=== PATIENT | female | born 1960 | race American Indian/Alaskan Native ===

== ENCOUNTER 2017-03-19 06:22 | Day surgery (SDC) | payer MEDICARE, OTHER ==
[~2017-03-19 06:22] MED LIST: Midazolam 1 MG/ML 2 ML SDV ONE; fentaNYL 100 MCG/2 ML SDV ONE
[2017-03-19] MEDS ORDERED: Dextrose 5%-0.45% NaCl 1,000 ML IV SCH (07:00)
[2017-03-19] MEDS ORDERED: fentaNYL 100 MCG/2 ML SDV IV ONE ×3 (07:11→14:50)
[2017-03-19] MEDS ORDERED: Midazolam 1 MG/ML 2 ML SDV IV ONE ×3 (07:12→14:50)
[2017-03-19 09:41] VITALS: BP 102/56
--- NOTE | 2017-03-19 12:34 | OR ---
DATE: 03/19/2017 PROCEDURE: Esophagogastroduodenoscopy and multiple pinch biopsies. INSTRUMENT USED: GIF-H180 Olympus video panendoscope. PREMEDICATIONS: No oral topical anesthesia used. Fentanyl 100 mcg intravenous, Versed 2 mg intravenous. The procedure was done under pulse oximetry, BP recording, and quality assurance monitor body. INDICATION: The patient with persistent abdominal pain and recent progressive weight loss, unexplained, history of passing dark stools intermittently. Esophagogastroduodenoscopy is performed for detection of any active erosive lesions, Gu[place]upe esophagus and/or malignancy also under consideration, H. pylori status to be determined, endoscopic hemostasis therapy if needed. DESCRIPTION OF PROCEDURE: The scope was passed with ease. Adequate visualization of the esophagus was made from proximal to distal areas. No upper esophageal lesions identified. No distal esophageal stricture. No uphill or downhill esophageal varices. No Carolyn-Guaman tear. No evidence of erosive esophagitis by Nance criteria. No esophageal polyp or tumor mass identified. Sliding hiatal hernia was noted. No proximal gastric varices noted. Gastric fundus examination by retroflexion showed no polypoid lesions. No gastric ulcer, malignant mass, or vascular ectasia identified. Some amount of solid food material was noted in the stomach, limited visualization of few areas. Duodenal bulb showed no ulcer. Visualized second part of the duodenum was unremarkable. Multiple pinch biopsies were taken from the gastric antrum and proximal body and sent for PyloriTek test for H. pylori, and if negative in an hour, the tissue is to be sent for histopathology. No bleeding was noted from any of the visualized areas at the completion of examination. Photographs were taken of the duodenal bulb, gastric antrum, fundus, and distal esophagus. IMPRESSION: 1. Sliding hiatal hernia. 2. Gastroparesis diabeticorum. The patient tolerated the procedure well. [facility] /[id number]
--- NOTE | 2017-03-19 12:42 | LETTER ---
03/19/2017 Mati Figueroa MD [facility] [address] [place] [address] RE: BRENDA MARIEENadia CARY : [address] Figueroa: Ms. Mariella Mariee had esophagogastroduodenoscopy done this morning and she tolerated the procedure well. I herewith send a copy of the endoscopy note and photographs for your review. Thank you. Sincerely, [facility] /[id number]
== END 2017-03-19 09:25 | disposition home or self-care (01) ==
LOC: DL.ENDO 06:22
PROVIDERS: ATTEND Internal Medicine Gastroenterology
DX: K44.9 Diaphragmatic hernia without obstruction or gangrene (principal); E11.22 Type 2 diabetes mellitus with diabetic chronic kidney disease; N18.9 Chronic kidney disease, unspecified; E11.43 Type 2 diabetes mellitus with diabetic autonomic (poly)neuropathy; K31.84 Gastroparesis; F31.9 Bipolar disorder, unspecified; Z88.8 Allergy status to other drugs, medicaments and biological substances; Z79.82 Long term (current) use of aspirin; Z79.899 Other long term (current) drug therapy; Z72.0 Tobacco use; Z98.890 Other specified postprocedural states
CPT/HCPCS: 43239; 87077; J2250; J3010; J7042; 88305

== ENCOUNTER 2017-03-25 07:28 | Day surgery (SDC) | payer MEDICARE, OTHER ==
[~2017-03-25 07:28] MED LIST changes: +Dextrose 5%-0.45% NaCl 1,000 ML IV SCH; +Sodium Chloride 0.9% 10 ML Syringe FLUSH PRN
[2017-03-25] MEDS ORDERED: fentaNYL 100 MCG/2 ML SDV IV ONE ×3 (09:35→14:43)
[2017-03-25] MEDS ORDERED: Midazolam 1 MG/ML 2 ML SDV IV ONE ×7 (09:36→14:43)
--- NOTE | 2017-03-25 10:32 | OR ---
DATE: 03/25/2017 PROCEDURE: Total colonoscopy. INSTRUMENT USED: PCF-160AL Olympus video colonoscope. PREMEDICATIONS: Fentanyl 100 mcg intravenous, Versed 4 mg intravenous. Nasal O2 cannula. The procedure was done under pulse oximetry, BP recording, and gambling monitor. INDICATION: The patient with previous colonic polyp and progressive constipation along with abdominal pain recently. Colonoscopic examination is done for detection of any polypoid lesions and removal, endoscopic hemostasis therapy if needed. DESCRIPTION OF PROCEDURE: Initial rectal exam showed external and internal hemorrhoidal tags. Rigid anoscopy was normal. The colonoscope was passed with ease. Few scattered diverticula were noted in the distal left colon. The scope was passed with ease up to the ileocecal area, photographs were taken of the normal-appearing cecum, identified by double-bulged ileocecal folds. No bleeding was noted from any of the visualized areas at the commencement of the examination. No stricture. No vascular ectasia. No large isolated ulcerations seen. No evidence of diffuse inflammatory bowel disease in the form of friability, contact bleeding, or ulcerations. No polyp or tumor mass identified. Probing the proximal sides of folds and flexures, using adequate distention and clearing up the stool material withdrawal of the scope was made, cecum to rectum time over 6 minutes. No bleeding was noted from any of the visualized areas at the completion of examination. IMPRESSION: 1. External hemorrhoids. 2. Diverticulosis. The patient tolerated the procedure well. [facility] /[id number]
[2017-03-25 12:18] VITALS: BP 106/51
--- NOTE | 2017-03-26 09:24 | LETTER ---
03/25/2017 Mati Figueroa MD [facility] [address] [place] [address] RE: MARIELLA MARIEE LUIS DANIEL : [address] Figueroa: Ms. Mariella Mariee had colonoscopic examination done this morning and she tolerated the procedure well. I herewith send a copy of the endoscopy note and photographs for your review. Thank you. Sincerely, [facility] /[id number]
== END 2017-03-25 11:54 | disposition home or self-care (01) ==
LOC: DL.ENDO 07:28
PROVIDERS: ATTEND Internal Medicine Gastroenterology
DX: Z12.11 Encounter for screening for malignant neoplasm of colon (principal); K57.30 Diverticulosis of large intestine without perforation or abscess without bleeding; K64.4 Residual hemorrhoidal skin tags; F31.9 Bipolar disorder, unspecified; N18.9 Chronic kidney disease, unspecified; E11.22 Type 2 diabetes mellitus with diabetic chronic kidney disease; Z79.82 Long term (current) use of aspirin; Z79.899 Other long term (current) drug therapy; Z72.0 Tobacco use
CPT/HCPCS: 45378; J2250; J3010; J7042

== ENCOUNTER 2025-07-22 07:24 | Emergency (ER) | payer OTHER ==
[2025-07-22] MEDS: Norepinephrine Bit/D5W Premix 4 MG/250 ML BAG IV SCH (07:30)
[2025-07-22 07:46] LABS: BASOPHILS PERCENT AUTO 0.0 % (0.0-1.0); EOSINOPHILS PERCENT AUTO 0.4 % (1.0-3.0); LYMPHOCYTES PERCENT AUTO 12.6 % (20.5-50.1); MONOCYTES PERCENT AUTO 14.5 % (2-8); NEUTROPHILS PERCENT AUTO 72.5 % (42.2-75.2); PLATELET COUNT,PLT 355 10^3/uL (150-450); RED BLOOD CELL COUNT 3.07 10^6/uL (4.2-5.4); WHITE BLOOD CELL COUNT,WBC 2.6 10^3/uL (5.0-10.0)
[2025-07-22 07:54] LABS: INR 1.0 (0.9-1.2); PTT,PARTIAL THROMBOPLSTIN TIME 35.4 SEC (22.0-34.0)
[2025-07-22] MEDS: 25% Dextrose in Water 10 ML Syringe IVPUSH ONE (08:00)
[2025-07-22 08:01] LABS: ALANINE AMINOTRANSFERASE,ALT 34 U/L (14-59); ASPARTATE AMNIOTRANSFERASE,AST 59 U/L (15-37); BILIRUBIN TOTAL 0.5 mg/dL (0.2-1.0); BLOOD UREA NITROGEN,BUN 56 mg/dL (7-18); CARBON DIOXIDE,CO2 21 mmol/L (21-32); CHLORIDE,CL 99 mmol/L (98-107); CREATININE 2.98 mg/dL (0.55-1.02); GLUCOSE RANDOM 63 mg/dL (70-99); POTASSIUM,K 4.4 mmol/L (3.5-5.1); PROTEIN TOTAL,TP 7.0 g/dL (6.4-8.2); SODIUM,NA 135 mmol/L (136-145)
[2025-07-22 08:02] LABS: A/G RATIO 0.43; ESTIMATED GFR 17 mL/min (>=60)
[2025-07-22 08:03] LABS: LACTIC ACID 3.9 mmol/L (0.4-2.0)
[2025-07-22 08:06] LABS: O2 DELIVERY DEVICE OM
[2025-07-22 08:09] LABS: BASE EXCESS VENOUS -8.3 mmol/l ((-2)-(+3)); BICARBONATE,VENOUS 18 mmol/l (19-25); O2 SATURATION VENOUS 49.7 % (60-80); PCO2 VENOUS 45 mmHg (41-51); PH,VENOUS 7.23 (7.31-7.41); PO2 VENOUS 41 mmHg (35-42)
[2025-07-22] MEDS: Norepinephrine Bit/D5W Premix 4 MG/250 ML BAG ONE (08:10)
[2025-07-22] MEDS: Etomidate 2 MG/ML 20 ML SDV IVPUSH ONE (08:27)
[2025-07-22 08:33] LABS: BAND PERCENT MAN 16 %; HOWELL JOLLY BODIES RARE; LYMPHOCYTES PERCENT MAN 13 % (20-50); MONOCYTES PERCENT MAN 15 % (2-8); SEG NEUTROPHILS PERCENT MAN 56 % (42-75)
[2025-07-22 08:34] LABS: PLATELET COUNT ESTIMATE ADEQUATE
[2025-07-22] MEDS: Iopamidol 755 Mg/ML 100 ML Bottle IVPUSH ONE (09:45)
[2025-07-22 10:31] LABS: BASE EXCESS VENOUS -7.7 mmol/l ((-2)-(+3)); BICARBONATE,VENOUS 19 mmol/l (19-25); O2 DELIVERY DEVICE VENTILATOR; O2 SATURATION VENOUS 39.0 % (60-80); PCO2 VENOUS 50 mmHg (41-51); PO2 VENOUS 37 mmHg (35-42)
[2025-07-22 10:36] LABS: PH,VENOUS 7.21 (7.31-7.41)
[2025-07-22 11:08] VITALS: BP 111/52; PULSE 102
[2025-07-22 11:15] LABS: O2 DELIVERY DEVICE VENTILATOR
[2025-07-22 11:16] LABS: BASE EXCESS VENOUS -8.1 mmol/l ((-2)-(+3)); BICARBONATE,VENOUS 19 mmol/l (19-25); O2 SATURATION VENOUS 59.0 % (60-80); PCO2 VENOUS 46 mmHg (41-51); PH,VENOUS 7.23 (7.31-7.41); PO2 VENOUS 43 mmHg (35-42)
== END 2025-07-22 11:58 ==
LOC: DL.ED 07:24
DX: A41.9 Sepsis, unspecified organism (principal); R65.21 Severe sepsis with septic shock; J96.01 Acute respiratory failure with hypoxia; E11.22 Type 2 diabetes mellitus with diabetic chronic kidney disease; N18.30 Chronic kidney disease, stage 3 unspecified; Z79.82 Long term (current) use of aspirin; Z79.899 Other long term (current) drug therapy; Z88.6 Allergy status to analgesic agent
CPT/HCPCS: 31500; 36415; 70450; 70496; 70498; 71045; 80053; 82803; 82947; 83605; 83735; 84484; 85025; 85610; 85730; 87040; 93010; 96365; 96366; 96368; 96375; 99284; 99291; 99292; J0692; J3373; J3490; J7030; J7040; J7050; Q9967